=== PATIENT | male | born 1950 | race Caucasian/White ===

== ENCOUNTER 2016-11-21 09:16 | Emergency (ER) | payer MEDICARE ==
[2016-11-21 09:46] LABS: COMPLETE URINE MICROSCOPIC? YES; Collection Type VOID; Ph 5.5 (5-6)
[2016-11-21 09:50] LABS: BASOPHIL % 0.2 % (0.0-0.4); Eosinophil % 0.5 % (0.00-5.0); Granulocytes % 69.7 % (36.0-66.0); Lymphocytes % 19.8 % (24.0-44.0); Mean Cell Volume 85.5 fl (78-100); Mean Corpuscular Hemoglobin 29.9 pg (26-32); Monocytes % 9.8 % (0.0-12.0); Platelet Count 194 K/mm3 (150-450); Red Blood Count 5.12 M/mm3 (4.1-5.6); Red Cell Distribution Width 13.4 % (11.5-14.0); White Blood Count 10.3 K/mm3 (4.0-10.5)
[2016-11-21 09:50] LABS: Bacteria FEW /HPF (NEGATIVE); Epithelial Cells RARE /HPF (FEW); Mucus MODERATE /HPF (NEGATIVE); WBC 0-2 /HPF (0-5)
[2016-11-21] MEDS ORDERED: Ativan 0.5 MG PO ONE (10:18)
[2016-11-21] MEDS ORDERED: Ativan 1 MG ONE (10:19)
--- NOTE | 2016-11-21 10:21 | ERPHSYRPT ---
- History of Present Illness Time Seen by Provider: 11/21/16 09:22 Source: patient, family (daughter) Patient Subjective Stated Complaint: HALLUCINATIONS Triage Nursing Assessment: PT WAS HAVING INCREASED HALLUCINATIONS IN RECENT DAYS SINCE DISCHARGED FROM [facility] 11/14. DAUGHTER STATES THAT IN PAST 24 HRS PT IS DELUSIONAL TO EVENTS AND INCREASED HALLUCINATIONS. ON ARRIVAL, PT IS APPROPRIATE WITH PLACE AND TIME AND NAME. RANDOM THOUGHT PROCESS AND INAPPROPRIATE COMMENTS 'ITS BROKEN'. PUPILS STEVE. DAUGHTER STATES HE HAS NOT HAD ACCESS TO MEDS SINCE LAST NIGHT. SKIN WARM AND DRY. DAUGHTER IS AT BEDSIDE ANSWERING QUESTIONS. Physician History: CC: hallucinations hx: 66 y/o patient of Dr Anam Montez formerly from [place]. He lives with family. He has hx of bipolar depression. He worsened last month and was admitted at [facility] for a few weeks. He went home. Formerly on wellbutrin and buspar. Was recently changed to higher dose buspar with trazadone and effexor. He is worse now. Saw a therapist yesterday. He was delusional. Seeing things not there. Thinks family won lottery. Told them he was going to and they could take over his accounts. Daughter locked up the medications last night and states no chance of OD. He has prior pill od attempts at suicide. Severity of Symptoms-Max: severe Severity of Symptoms-Current: severe Allergies/Adverse Reactions: Iodinated Contrast Media - Oral and Allergy (Verified 11/21/16 09:40) Home Medications: Aspirin 81 mg PO DAILY 11/21/16 [History] Atorvastatin Calcium 40 mg PO DAILY 11/21/16 [History] Bioflav,Lemon/Vit Bcomp&C [Lipo-Flavonoid Plus Caplet] 1 each PO DAILY 11/21/16 [History] Buspirone HCl [Buspar] 20 mg PO TID 11/21/16 [History] Clopidogrel Bisulfate 75 mg [PLAVIX 75 MG Tablet] 75 mg PO DAILY 11/21/16 [History] Ezetimibe 10 mg [Zetia 10 MG] 10 mg PO DAILY 11/21/16 [History] Ranolazine 500 MG [Ranexa 500 MG] 500 mg PO BID 11/21/16 [History] Tamsulosin HCl 0.4 mg [Flomax 0.4 MG] 0.4 mg PO BID 11/21/16 [History] Trazodone HCl 150 mg PO HS 11/21/16 [History] Venlafaxine HCl 37.5 mg [Effexor 37.5 mg] 37.5 mg PO DAILY 11/21/16 [ History] Venlafaxine HCl [Venlafaxine HCl ER] 150 mg PO DAILY 11/21/16 [History] Hx Tetanus, Diphtheria Vaccination/Date Given: Yes Hx Influenza Vaccination/Date Given: No Hx Pneumococcal Vaccination/Date Given: No Immunizations Up to Date: Yes - Past Medical History Pertinent Past Medical History: Yes Neurological History: Stroke, TIA Cardiac History: Angina, High Cholesterol Psycho-Social History: Bipolar, Other Male Reproductive Disorders: Prostate Problems Other Medical History: PSYCHOSIS. DVT - Past Surgical History Past Surgical History: Yes Cardiac: Cardiac Catheterization, Cardiac Stent - Social History Smoking Status: Current every day smoker Exposure to second hand smoke: Yes Drug Use: none Patient Lives Alone: No - Review of Systems Constitutional: No Fever, No Chills Ears, Nose, & Throat: No Symptoms Respiratory: No Cough Cardiac: No Chest Pain Abdominal/Gastrointestinal: No Abdominal Pain, No Nausea, No Vomiting Genitourinary Symptoms: No Symptoms Neurological: No Focal Weakness, No Parasthesia Psychological: Anxiety, Depression, Suicidal Ideations, Emotional Lability, Hallucinations All Other Systems: Reviewed and Negative - Nursing Vital Signs Nursing Vital Signs: Initial Vital Signs Temperature 98.2 F Temperature Source Oral Pulse Rate 74 Respiratory Rate 18 Blood Pressure [Left Arm] 122/71 Pain Intensity 0 - Physical Exam General Appearance: alert Eyes, Ears, Nose, Throat Exam: normal ENT inspection, moist mucous membranes Neck Exam: normal inspection, non-tender, supple Respiratory Exam: normal breath sounds Cardiovascular Exam: regular rate/rhythm Gastrointestinal/Abdominal Exam: soft, No tenderness, No distention Neurological Exam: alert Skin Exam: warm, dry, No rash SpO2 Interpretation: normal SpO2: 98 Oxygen Delivery: Room Air - Course Nursing assessment & vital signs reviewed: Yes EKG Interpreted by Me: RATE ([id number]), Sinus Rhythm, NORMAL AXIS, NORMAL INTERVALS ( QTc 423), NORMAL QRS, NORMAL ST-T Ordered Tests: Active Orders 24 hr Category Date Time Status EKG-ER Only STAT Care 11/21/16 09:23 Active ACETAMINOPHEN Stat Lab 11/21/16 09:40 Completed CBC W DIFF Stat Lab 11/21/16 09:40 Completed CMP Stat Lab 11/21/16 09:40 Completed Ethyl Alcohol,Urine Stat Lab 11/21/16 09:42 Completed TSH, 3RD Generation Stat Lab 11/21/16 09:40 Completed UA W/ MICROSCOPIC Stat Lab 11/21/16 09:42 Completed Urine Triage Profile Stat Lab 11/21/16 09:42 Completed Medication Summary Discontinued Medications Generic Name Dose Route Start Last Admin Trade Name Ashish PRN Reason Stop Dose Admin Lorazepam 0.5 mg 11/21/16 10:18 11/21/16 10:23 Ativan 0.5 Mg PO 11/21/16 10:19 Not Given STAT ONE Lorazepam 0.5 mg 11/21/16 10:22 11/21/16 10:23 Ativan 1 Mg PO 11/21/16 10:23 0.5 mg STAT ONE Administration Lorazepam Confirm 11/21/16 10:19 Ativan 1 Mg Administered 11/21/16 10:20 Dose 1 mg .ROUTE .STK-MED ONE Lab/Rad Data: Laboratory Result Diagrams 11/21/16 09:40 11/21/16 09:40 Laboratory Results 11/21/16 11/21/16 11/21/16 Range/Units 09:42 09:42 09:42 WBC (4.0-10.5) K/mm3 RBC (4.1-5.6) M/mm3 Hgb (12.5-18.0) gm/dl Hct (42-50) % MCV (78-100) fl MCH (26-32) pg MCHC (32-36) g/dl RDW (11.5-14.0) % Plt Count (150-450) K/mm3 MPV (6-9.5) fl Gran % (36.0-66.0) % Lymphocytes % (24.0-44.0) % Monocytes % (0.0-12.0) % Eosinophils % (0.00-5.0) % Basophils % (0.0-0.4) % Basophils # (0-0.4) Sodium (136-145) mEq/L Potassium (3.5-5.1) mEq/L Chloride (98-107) mEq/L Carbon Dioxide (21-32) mEq/L Anion Gap (5-15) MEQ/L BUN (9-20) mg/dL Creatinine (0.55-1.30) mg/dl Estimated GFR ML/MIN Glucose (70-110) MG/DL Calcium (8.5-10.1) mg/dL Total Bilirubin (0.2-1.0) mg/dL AST (15-37) U/L ALT (12-78) U/L Alkaline Phosphatase (46-116) U/L Serum Total Protein (6.4-8.2) gm/dL Albumin (3.4-5.0) g/dL TSH 3rd Generation (0.358-3.740) mIU/L Ur Collection Type VOID Urine Color DARK YELLOW (YELLOW) Urine Appearance CLEAR (CLEAR) Urine pH 5.5 5.5 (5-6) Ur Specific [place] 1.025 (1.005-1.025) Urine Protein TRACE (Negative) Urine Glucose (UA) 100 (NEGATIVE) mg/dL Urine Ketones NEGATIVE (NEGATIVE) Urine Nitrite NEGATIVE (NEGATIVE) Urine Bilirubin SMALL (NEGATIVE) Urine Urobilinogen >=8.0 (0-1) mg/dL Urine WBC (Auto) NEGATIVE (NEGATIVE) Urine RBC (Auto) NEGATIVE (0-5) Vikas/ul Urine Microscopic RBC 2-5 (0-2) /HPF Urine Microscopic WBC 0-2 (0-5) /HPF Ur Epithelial Cells RARE (FEW) /HPF Urine Bacteria FEW (NEGATIVE) /HPF Urine Mucus MODERATE (NEGATIVE) /HPF Urine Opiates Level NEG. (NEGATIVE) Ur Methadone NEG. (NEGATIVE) Acetaminophen (10-30) ug/ml Urine Barbiturates NEG. (NEGATIVE) Ur Phencyclidine (PCP) NEG. (NEGATIVE) Urine Amphetamine NEG. (NEGATIVE) U Benzodiazepine Level NEG. (NEGATIVE) Urine Cocaine NEG. (NEGATIVE) Urine Marijuana (THC) NEG. (NEGATIVE) Urine Ethyl Alcohol 2 (0.00-20) mg/dl Specimen Received 11/21/16 0930 11/21/16 11/21/16 Range/Units 09:40 09:40 WBC 10.3 (4.0-10.5) K/mm3 RBC 5.12 (4.1-5.6) M/mm3 Hgb 15.3 (12.5-18.0) gm/dl Hct 43.8 (42-50) % MCV 85.5 (78-100) fl MCH 29.9 (26-32) pg MCHC 34.9 (32-36) g/dl RDW 13.4 (11.5-14.0) % Plt Count 194 (150-450) K/mm3 MPV 10.0 H (6-9.5) fl Gran % 69.7 H (36.0-66.0) % Lymphocytes % 19.8 L (24.0-44.0) % Monocytes % 9.8 (0.0-12.0) % Eosinophils % 0.5 (0.00-5.0) % Basophils % 0.2 (0.0-0.4) % Basophils # 0.02 (0-0.4) Sodium 142 (136-145) mEq/L Potassium 3.8 (3.5-5.1) mEq/L Chloride 107 (98-107) mEq/L Carbon Dioxide 22.8 (21-32) mEq/L Anion Gap 16.4 H (5-15) MEQ/L BUN 13 (9-20) mg/dL Creatinine 1.30 (0.55-1.30) mg/dl Estimated GFR 59 ML/MIN Glucose 101 (70-110) MG/DL Calcium 9.0 (8.5-10.1) mg/dL Total Bilirubin 1.3 H (0.2-1.0) mg/dL AST 23 (15-37) U/L ALT 21 (12-78) U/L Alkaline Phosphatase 76 (46-116) U/L Serum Total Protein 7.2 (6.4-8.2) gm/dL Albumin 3.7 (3.4-5.0) g/dL TSH 3rd Generation 0.537 (0.358-3.740) mIU/L Ur Collection Type Urine Color (YELLOW) Urine Appearance (CLEAR) Urine pH (5-6) Ur Specific Linne[place] (1.005-1.025) Urine Protein (Negative) Urine Glucose (UA) (NEGATIVE) mg/dL Urine Ketones (NEGATIVE) Urine Nitrite (NEGATIVE) Urine Bilirubin (NEGATIVE) Urine Urobilinogen (0-1) mg/dL Urine WBC (Auto) (NEGATIVE) Urine RBC (Auto) (0-5) Vikas/ul Urine Microscopic RBC (0-2) /HPF Urine Microscopic WBC (0-5) /HPF Ur Epithelial Cells (FEW) /HPF Urine Bacteria (NEGATIVE) /HPF Urine Mucus (NEGATIVE) /HPF Urine Opiates Level (NEGATIVE) Ur Methadone (NEGATIVE) Acetaminophen < 2.0 L (10-30) ug/ml Urine Barbiturates (NEGATIVE) Ur Phencyclidine (PCP) (NEGATIVE) Urine Amphetamine (NEGATIVE) U Benzodiazepine Level (NEGATIVE) Urine Cocaine (NEGATIVE) Urine Marijuana (THC) (NEGATIVE) Urine Ethyl Alcohol (0.00-20) mg/dl Specimen Received - Progress Progress Note: 11/21/16 10:22 Labs ordered. He is tearful. Ativan given. Advised geriatric psychiatry. 11/21/16 12:25 Pt accepted at [facility] per Dr Cristhian Gustafson. Counseled pt/family regarding: lab results, diagnosis, need for follow-up - Departure Time of Disposition: 12:26 Departure Disposition: Transfer ([facility]) Clinical Impression: psychotic geriatric depression Condition: Stable Critical Care Time: No
[2016-11-21] MEDS ORDERED: Ativan 1 MG PO ONE (10:22)
[2016-11-21 10:34] LABS: ACETAMINOPHEN < 2.0 ug/ml (10-30); ALBUMIN 3.7 g/dL (3.4-5.0); ALKALINE PHOSPHATASE 76 U/L (46-116); ANION GAP 16.4 MEQ/L (5-15); BILIRUBIN,TOTAL 1.3 mg/dL (0.2-1.0); BLOOD UREA NITROGEN 13 mg/dL (9-20); CHLORIDE 107 mEq/L (98-107); Carbon Dioxide 22.8 mEq/L (21-32); Glucose 101 MG/DL (70-110); Potassium 3.8 mEq/L (3.5-5.1); SGOT/AST 23 U/L (15-37); SGPT/ALT 21 U/L (12-78); SODIUM 142 mEq/L (136-145); Total Protein 7.2 gm/dL (6.4-8.2)
[2016-11-21 13:17] VITALS: BP 126/78; PULSE 78; O2SAT 97
== END 2016-11-21 14:00 | disposition short-term general hospital (02) ==
LOC: ED 09:16
DX: F32.3 Major depressive disorder, single episode, severe with psychotic features (principal); E78.00 Pure hypercholesterolemia, unspecified; Z86.73 Personal history of transient ischemic attack (TIA), and cerebral infarction without residual deficits; Z79.899 Other long term (current) drug therapy
CPT/HCPCS: 99285; 93005; 81000; 84443; 36415; 80307; 80320; 83986; 85025; 80053; A9270; G0481

== ENCOUNTER 2016-12-09 08:29 | Emergency (ER) | payer MEDICARE ==
--- NOTE | 2016-12-09 08:44 | ERPHSYRPT ---
- History of Present Illness Time Seen by Provider: 12/09/16 08:38 Historian: patient Exam Limitations: no limitations Physician History: Pt. with CP for 1-2 hrs. 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 Feels similar to previous episodes of CP previously. States substernal CP, dull radiating to back which is sharp. Also with SOB, cold sweats and dizziness. Denies N/V or palpitation, weakness. Pt. with stents X 3. Took ASA/NTG with some relief of CP. Init. states CP 03/03 and now 12/01. No recent illness, no fever, chills, congestion or cough. Timing/Duration: hour(s) (2), gradual onset Activities at Onset: rest (sitting) Quality: dullness Location: substernal Chest Pain Radiation: back Severity of Pain-Max: moderate Severity of Pain-Current: mild Modifying Factors: Improves With: nitroglycerin (improves), aspirin. Worsens With: coughing, exertion, change in position Associated Symptoms: shortness of breath, hurts to breathe, weakness, dizziness , No nausea, No vomiting, No palpitations, No abdominal pain, No cough, No chills, No fever, No edema Prior Chest Pain/Cardiac Workup: heart attack (multiples) Nitro Today/Relief: 0.4 mg x 3, provided at home Aspirin Treatment Today: 81 mg x 4 Allergies/Adverse Reactions: Iodinated Contrast Media - Oral and Allergy (Verified 12/09/16 08:53) Home Medications: Aspirin 81 mg PO DAILY 11/21/16 [History] Atorvastatin Calcium 40 mg PO DAILY 11/21/16 [History] Bioflav,Lemon/Vit Bcomp&C [Lipo-Flavonoid Plus Caplet] 1 each PO DAILY 11/21/16 [History] Buspirone HCl [Buspar] 20 mg PO TID 11/21/16 [History] Clopidogrel Bisulfate 75 mg [PLAVIX 75 MG Tablet] 75 mg PO DAILY 11/21/16 [History] Ezetimibe 10 mg [Zetia 10 MG] 10 mg PO DAILY 11/21/16 [History] Ranolazine 500 MG [Ranexa 500 MG] 500 mg PO BID 11/21/16 [History] Tamsulosin HCl 0.4 mg [Flomax 0.4 MG] 0.4 mg PO BID 11/21/16 [History] Trazodone HCl 150 mg PO HS 11/21/16 [History] Venlafaxine HCl 37.5 mg [Effexor 37.5 mg] 37.5 mg PO DAILY 11/21/16 [ History] Venlafaxine HCl [Venlafaxine HCl ER] 150 mg PO DAILY 11/21/16 [History] Hx Tetanus, Diphtheria Vaccination/Date Given: Yes Hx Influenza Vaccination/Date Given: No Hx Pneumococcal Vaccination/Date Given: No - Review of Systems Constitutional: No Fever, No Chills Eyes: No Symptoms Ears, Nose, & Throat: No Symptoms Respiratory: Dyspnea, No Cough, No Dyspnea on Exertion (BARRY) Cardiac: Chest Pain, No Edema, No Palpitations, No Syncope Abdominal/Gastrointestinal: No Abdominal Pain, No Nausea, No Vomiting, No Diarrhea Genitourinary Symptoms: No Dysuria Musculoskeletal: No Back Pain, No Neck Pain Skin: No Rash Neurological: Focal Weakness, No Dizziness, No Sensory Changes Psychological: No Symptoms Endocrine: No Symptoms Hematologic/Lymphatic: No Symptoms Immunological/Allergic: No Symptoms All Other Systems: Reviewed and Negative - Past Medical History Pertinent Past Medical History: Yes Neurological History: Stroke, TIA Cardiac History: Angina, Coronary Artery Disease, High Cholesterol Respiratory History: COPD Endocrine Medical History: No Pertinent History Musculoskeletal History: No Pertinent History GI Medical History: No Pertinent History History: No Pertinent History Psycho-Social History: Bipolar, Other Male Reproductive Disorders: Prostate Problems Other Medical History: PSYCHOSIS. DVT - Past Surgical History Past Surgical History: Yes Cardiac: Cardiac Catheterization, Cardiac Stent (X 3) Respiratory: No Pertinent History Other Surgical History: HENNY FILTER - Social History Smoking Status: Current every day smoker Exposure to second hand smoke: Yes Drug Use: none Patient Lives Alone: No Significant Family History: heart disease (father of heart attack at 62) - Physical Exam General Appearance: no apparent distress, alert Eye Exam: PERRL/EOMI, eyes nml inspection Ears, Nose, Throat Exam: normal ENT inspection, moist mucous membranes Neck Exam: normal inspection, non-tender, supple, full range of motion Respiratory Exam: normal breath sounds, lungs clear, No respiratory distress Cardiovascular Exam: regular rate/rhythm, normal heart sounds Gastrointestinal/Abdomen Exam: soft, No tenderness, No mass Back Exam: normal inspection, No CVA tenderness, No vertebral tenderness Extremity Exam: normal inspection, normal range of motion Neurologic Exam: alert, oriented x 3, cooperative, normal mood/affect, sensation nml, No motor deficits Skin Exam: normal color, warm, dry - Course Nursing assessment & vital signs reviewed: Yes EKG Interpreted by Me: RATE (57), NORMAL AXIS, NORMAL INTERVALS, NORMAL QRS - Radiology Exams Chest X-ray Interpretation: Interpreted by me, No Pneumonia, No Infiltrates Ordered Tests: Active Orders 24 hr Category Date Time Status Inspector Poising STAT Care 12/09/16 09:24 Active EKG-ER Only STAT Care 12/09/16 09:15 Active IV Insertion STAT Care 12/09/16 09:15 Active Oxygen-ED Only NASAL CANNULA 2 lpm Care 12/09/16 09:17 Active CHEST 1 VIEW (PORTABLE) Stat Exams 12/09/16 08:54 Taken BMP Stat Lab 12/09/16 08:40 Completed CBC W DIFF Stat Lab 12/09/16 08:40 Completed CK-Creatinine Phosphokinase Stat Lab 12/09/16 08:40 Completed TROPONIN Q3H Lab 12/09/16 08:40 Completed TROPONIN Q3H Lab 12/09/16 12:00 Ordered TROPONIN Q3H Lab 12/09/16 15:00 Ordered TROPONIN Q3H Lab 12/09/16 18:00 Ordered TROPONIN Q3H Lab 12/09/16 21:00 Ordered Medication Summary Generic Name Dose Route Start Last Admin Trade Name Freq PRN Reason Stop Dose Admin Sodium Chloride 1,000 mls @ 50 mls/hr 12/09/16 09:00 12/09/16 08:57 Sodium Chloride 0.9% 1000 Ml IV 01/08/17 08:59 50 mls/hr .Q20H NORM Administration Discontinued Medications Generic Name Dose Route Start Last Admin Trade Name Freq PRN Reason Stop Dose Admin Aspirin 243 mg 12/09/16 08:54 12/09/16 08:42 Baby Aspirin 81 Mg Chew PO 12/09/16 08:55 243 mg STAT ONE Administration Aspirin Confirm 12/09/16 08:57 Baby Aspirin 81 Mg Chew Administered 12/09/16 08:58 Dose 243 mg .ROUTE .STK-MED ONE Sodium Chloride Confirm 12/09/16 08:57 Sodium Chloride 0.9% 1000 Ml Administered 12/09/16 08:58 Dose 1,000 mls @ ud .ROUTE .STK-MED ONE Nitroglycerin 0.4 mg 12/09/16 08:56 12/09/16 08:42 Nitrostat 0.4 Mg (Ed) SL 12/09/16 08:57 0.4 mg STAT ONE Administration Nitroglycerin Confirm 12/09/16 08:57 Nitrostat 0.4 Mg (Ed) Administered 12/09/16 08:58 Dose 0.4 mg SL .STK-MED ONE Lab/Rad Data: Laboratory Result Diagrams 12/09/16 08:40 12/09/16 08:40 Laboratory Results 12/09/16 12/09/16 12/09/16 Range/Units 08:40 08:40 08:40 WBC 7.8 (4.0-10.5) K/mm3 RBC 4.55 (4.1-5.6) M/mm3 Hgb 13.9 (12.5-18.0) gm/dl Hct 40.2 L (42-50) % MCV 88.4 (78-100) fl MCH 30.5 (26-32) pg MCHC 34.6 (32-36) g/dl RDW 13.8 (11.5-14.0) % Plt Count 194 (150-450) K/mm3 MPV 9.9 H (6-9.5) fl Gran % 64.5 (36.0-66.0) % Lymphocytes % 26.6 (24.0-44.0) % Monocytes % 6.9 (0.0-12.0) % Eosinophils % 1.7 (0.00-5.0) % Basophils % 0.3 (0.0-0.4) % Basophils # 0.02 (0-0.4) Sodium 147 H (136-145) mEq/L Potassium 3.8 (3.5-5.1) mEq/L Chloride 110 H (98-107) mEq/L Carbon Dioxide 25.7 (21-32) mEq/L Anion Gap 14.6 (5-15) MEQ/L BUN 16 (9-20) mg/dL Creatinine 1.26 (0.55-1.30) mg/dl Estimated GFR > 60 ML/MIN Glucose 117 H (70-110) MG/DL Calcium 8.5 (8.5-10.1) mg/dL Creatine Kinase 115 (39-308) U/L Troponin I < 0.017 (0.000-0.056) ng/ml - Progress Progress: improved Air Movement: good Progress Note: 12/09/16 10:02 patient given nitroglycerin and and aspirin, that did improve his chest pain. Blood Culture(s) Obtained: No Antibiotics given: No Discussed with Dr.: Other (Dr. Roman, manager managed backup services, was notified about pt and agreed to accept transfer.) Counseled pt/family regarding: lab results, diagnosis, rad results - Departure Time of Disposition: 10:04 Departure Disposition: Transfer ([facility]) Clinical Impression: Chest pain Condition: Fair Critical Care Time: No
[2016-12-09] MEDS ORDERED: BABY ASPIRIN 81 MG CHEW PO ONE (08:54)
[2016-12-09] MEDS ORDERED: Nitrostat 0.4 MG (ED) SL ONE ×2 (08:56→08:57)
[2016-12-09] MEDS ORDERED: Sodium Chloride 0.9% 1000 ML 1,000 ML ONE (08:57)
[2016-12-09] MEDS ORDERED: BABY ASPIRIN 81 MG CHEW ONE (08:57)
[2016-12-09] MEDS ORDERED: Sodium Chloride 0.9% 1000 ML 1,000 ML IV SCH (09:00)
[2016-12-09 09:11] LABS: BASOPHIL % 0.3 % (0.0-0.4); Eosinophil % 1.7 % (0.00-5.0); Granulocytes % 64.5 % (36.0-66.0); Lymphocytes % 26.6 % (24.0-44.0); Mean Cell Volume 88.4 fl (78-100); Mean Corpuscular Hemoglobin 30.5 pg (26-32); Mean Platelet Volume 9.9 fl (6-9.5); Monocytes % 6.9 % (0.0-12.0); Platelet Count 194 K/mm3 (150-450); Red Blood Count 4.55 M/mm3 (4.1-5.6); Red Cell Distribution Width 13.8 % (11.5-14.0); White Blood Count 7.8 K/mm3 (4.0-10.5)
[2016-12-09 09:34] LABS: ANION GAP 14.6 MEQ/L (5-15); BLOOD UREA NITROGEN 16 mg/dL (9-20); CHLORIDE 110 mEq/L (98-107); Carbon Dioxide 25.7 mEq/L (21-32); Glucose 117 MG/DL (70-110); Potassium 3.8 mEq/L (3.5-5.1); SODIUM 147 mEq/L (136-145)
--- NOTE | 2016-12-09 10:19 | XRAY ---
Indication: Chest pain. Comparison: None Portable chest demonstrates a few calcified granulomas. No focal infiltrate, consolidation, or large effusion. Heart and mediastinal structures within normal limits. Bony thorax intact with minimal degenerative changes. Impression: Nonacute chest with chronic features.
[2016-12-09 11:39] VITALS: BP 126/64; PULSE 63; O2SAT 98
== END 2016-12-09 11:41 | disposition short-term general hospital (02) ==
LOC: ED 08:29
DX: R07.89 Other chest pain (principal); R06.02 Shortness of breath; R42 Dizziness and giddiness; J44.9 Chronic obstructive pulmonary disease, unspecified; I25.10 Atherosclerotic heart disease of native coronary artery without angina pectoris; E78.00 Pure hypercholesterolemia, unspecified; Z86.73 Personal history of transient ischemic attack (TIA), and cerebral infarction without residual deficits; Z72.0 Tobacco use; Z98.61 Coronary angioplasty status; Z79.899 Other long term (current) drug therapy
CPT/HCPCS: 93041; 99285; 36000; 96360; 96361; 93005; 36415; 82550; 85025; 80048; 84484; 71010; A9270 ×2